=== PATIENT | male | born 1975 | race Caucasian/White ===

== ENCOUNTER 2020-08-22 10:50 | Emergency (ER) | payer SELFPAY ==
[~2020-08-22] VITALS: Ht 190.5 cm; Wt 138.6 kg
[~2020-08-22 10:50] MED LIST: KETO10TA PO; SULF1TAB24 PO
--- NOTE | 2020-08-22 11:08 | PHYS DOC ---
Past History Past Medical History: Kidney Stones Past Surgical History: Other Alcohol Use: Occasionally Drug Use: None Adult General Chief Complaint Chief Complaint: MULTIPLE COMPLAINTS [facility] HPI Patient is a 44-year-old male presenting for shortness of breath. Onset was approximately 2 hours ago prior to arrival without any known inciting event or trauma. Nothing known makes better, physical exertion makes worse. Patient reports " it is difficult to breathe" in the setting of URI-like symptoms. States he has had episodic chills and diaphoresis despite being adequately closed and in climate controlled environments. He has no known COVID-19 exposure but is concerned about potential infection today. He does admit dry nonproductive cough, rhinorrhea, postnasal drip, facial congestion, shortness of breath, dyspnea with exertion, nausea and several episodes of dry heaving without any actual emesis. Denies any known fever, syncope, chest pain, abdominal pain, no changes in bladder or bowel function. Patient admits history of tobacco and alcohol use and intermittently uses THC. No history of IV drug use but admits prior history of illicit drug use such as cocaine. Does not have a primary care physician, has no known medical diagnoses. Has significant family cardiac history. Of note, patient is refusing any nasal COVID-19 swab stating " I have a sensitive nose... The vessels in there bleed any time I get a swab so I do not want it" Review of Systems Review of Systems Fourteen body systems of review of systems have been reviewed. See HPI for pertinent positives and negative responses, other loredo all other systems are negative, non-pertinent or non-contributory Allergies Allergies Allergies Coded Allergies Type Severity Reaction Last Updated Verified venom-honey bee Allergy Unknown 08/22/20 No Physical Exam Physical Exam General: Appears anxious and diaphoretic Skin: Warm, dry. Normal for ethnicity. HEENT: Atraumatic. PERRLA. Rhinorrhea, postnasal drip and congestion. Nasal turbinates boggy b/l. Moist mucous membranes. Uvula midline. Maintaining secretions. No phonation changes. Neck: Trachea midline. Normal ROM. No stridor. Respiratory: Normal WOB. CTAB w/o w/r/r. No tachypnea. Cardiovascular: Regular rate and rhythm. Normal peripheral perfusion. Abdomen: Soft. Non tender. No distension. Back: Normal ROM. Musculoskeletal: No swelling or deformity. Neuro: Alert and oriented x 4. MAEE. Lymph: No cervical LAD. Psych: Anxious affect, normal mood Current Patient Data Vital Signs Vital Signs Date Time Temp Pulse Resp B/P (MAP) Pulse Ox O2 Delivery O2 Flow Rate FiO2 08/22/20 12:38 98 12 159/117 (131) 98 Room Air 08/22/20 11:00 98.2 Lab Results Laboratory Tests Test 08/22/20 11:23 White Blood Count 10.4 x10^3/uL (4.0-11.0) Red Blood Count 5.45 x10^6/uL (4.30-5.70) Hemoglobin 16.9 g/dL (13.0-17.5) Hematocrit 50.2 % (39.0-53.0) Mean Corpuscular Volume 92 fL (79-100) Mean Corpuscular Hemoglobin 31 pg (25-35) Mean Corpuscular Hemoglobin Concent 34 g/dL (31-37) Red Cell Distribution Width 13.2 % (11.5-14.5) Platelet Count 231 x10^3/uL (140-400) Neutrophils (%) (Auto) 72 % (31-73) Lymphocytes (%) (Auto) 21 % (24-48) Monocytes (%) (Auto) 6 % (0-9) Eosinophils (%) (Auto) 1 % (0-3) Basophils (%) (Auto) 1 % (0-3) Neutrophils # (Auto) 7.5 x10^3uL (1.8-7.7) Lymphocytes # (Auto) 2.1 x10^3/uL (1.0-4.8) Monocytes # (Auto) 0.6 x10^3/uL (0.0-1.1) Eosinophils # (Auto) 0.1 x10^3/uL (0.0-0.7) Basophils # (Auto) 0.1 x10^3/uL (0.0-0.2) Prothrombin Time 9.8 SEC (9.4-11.4) Prothromb Time International Ratio 0.9 (0.9-1.1) Activated Partial Thromboplast Time 29 SEC (23-33) Sodium Level 141 mmol/L (136-145) Potassium Level 4.5 mmol/L (3.5-5.1) Chloride Level 107 mmol/L (98-107) Carbon Dioxide Level 26 mmol/L (21-32) Anion Gap 8 (6-14) Blood Urea Nitrogen 11 mg/dL (8-26) Creatinine 1.2 mg/dL (0.7-1.3) Estimated GFR (Cockcroft-Gault) 65.2 BUN/Creatinine Ratio 9 (6-20) Glucose Level 101 mg/dL (70-99) Calcium Level 9.5 mg/dL (8.5-10.1) Total Bilirubin 0.4 mg/dL (0.2-1.0) Aspartate Amino Transf (AST/SGOT) 27 U/L (15-37) Alanine Aminotransferase (ALT/SGPT) 36 U/L (16-63) Alkaline Phosphatase 77 U/L (46-116) Troponin I Quantitative 0.228 ng/mL (0-0.055) Total Protein 7.8 g/dL (6.4-8.2) Albumin 3.8 g/dL (3.4-5.0) Albumin/Globulin Ratio 1.0 (1.0-1.7) EKG EKG EKG ordered and interpreted by myself at 1135 hrs. as sinus rhythm at 76 bpm, unremarkable intervals, left axis deviation, no acute ischemic findings, no STEMI Radiology/Procedures Radiology/Procedures XR CHEST 1V History: Reason: SHORTNESS OF BREATH, COUGH, PUI COVID / Spl. Instructions: / History: Comparison: None. Findings: No consolidation or pleural effusion. Normal heart size. No pneumothorax. Impression: 1. No acute cardiopulmonary process. Electronically signed by: Stoney Lang DO (08/22/2020 12:09 PM) [id number] Heart Score HEART Score for Chest Pain: HEART Score for Chest Pain Response (Comments) Value History Slighlty/Non-Suspicious 0 ECG Normal 0 Age >45 - < 65 1 Risk Factors >3 Risk Factors or Hx CAD 2 Troponin < Normal Limit 0 Total 3 Risk Factors: Risk Factors: DM, Current or recent (<one month) smoker, HTN, HLP, family history of CAD, obesity. Risk Scores: Risk Factors: DM, Current or recent (<one month) smoker, HTN, HLP, family history of CAD, obesity. Course & Med Decision Making Course & Med Decision Making Pertinent Labs and Imaging studies reviewed. (See chart for details) Discussed most likely diagnosis of NSTEMI, likely type 2 from suspect COVID-19 vs other respiratory illness. I discussed case with [facility]'s cardiology team and hospitalist, plan to initiate heparin drip and transfer for higher acuity of care and potential heart cath I updated patient and who tuned in via Facetime at length on proposed plan of care. Patient hesitant about transfer due to fear of getting COVID tested via nasal swab. Cites "sensitive veins" in his nose that will bleed I spent +30 minutes trying to stress severity of case and need for transfer and admission but patient did not want to do this. The risks of refusing recommended care that were disclosed and acknowledged by the patient include loss of current lifestyle, permanent mental impairment, and . The recommended medical care being refused was been discussed with the patient and was to stay for continued monitoring, workup, and possible treatment. Patient with full capacity still voicing that he would like to leave AMA Discharge Care: The patient understood they are welcome to return to the hospit al at any time to receive the recommended care or any other care at any time, regardless of their ability to pay for such care. Patient signed AMA paperwork but left prior to receiving ER paperwork detailing next steps in care for such a high-risk patient Given the high probability of imminent or life threatening deterioration of the patients condition without intervention, the patient was immediately assessed by myself and the nurse, and cardiac monitoring initiated. The patient was also placed on oxygen and continuous pulse oximetry initiated. During the course of the patients stay, I spent a considerable amount of time at the bedside performing serial re-evaluations of the patients hemodynamic and clinical status because of the recognized potential threat to life or limb in this condition. Clinical management of this patient involved high complexity decision making to assess, manipulate, and support vital organ system failure. I then had a chance to review all of the available laboratory and radiographic studies obtained today, and I also reviewed old records available to me at the time. Sequential vital signs were obtained. Critical care time noted below was time spent engaged in work directly related to the individual patients care, not including time performing procedures; however it does include time spent at the immediate bedside or elsewhere on the floor or unit. TOTAL CRITICAL CARE TIME ELAPSED: in excess of 30 minutes. BODY SYSTEM AT HIGHEST RISK: Cardiac. Dragon Disclaimer Dragon Disclaimer This electronic medical record was generated, in whole or in part, using a voice recognition dictation system. PERC Rule for PE PERC Rule for PE Response (Comments) Value Age > 50: No 0 HR > 100: No 0 Sa02 on room air <95%: No 0 Unilateral leg swelling: No 0 Hemoptysis: No 0 Recent surgery or trauma: No 0 Prior PE or DVT: No 0 Hormone use: No 0 Total 0 Departure Departure: Impression: Primary Impression: NSTEMI (non-ST elevated myocardial infarction) Additional Impression: Viral syndrome Disposition: 07 AMA/ELOPED/LWBS Condition: CRITICAL Referrals: ISAI FLORIAN MD (PCP) Problem Qualifiers MICHELLE RIVAS DO Aug 22, 2020 11:08
[2020-08-22] MEDS ORDERED: IV NORMAL SALINE 1,000ML 1,000 ML IV SCH (11:15)
[2020-08-22 11:39] LABS: BASO # 0.1 x10^3/uL (0.0-0.2); BASO % 1 % (0-3); EOS # 0.1 x10^3/uL (0.0-0.7); EOS % 1 % (0-3); HEMATOCRIT 50.2 % (39.0-53.0); HEMOGLOBIN 16.9 g/dL (13.0-17.5); LYMPH # 2.1 x10^3/uL (1.0-4.8); LYMPH % 21 % (24-48); MEAN CORPUSCULAR HEMOGLOBIN 31 pg (25-35); MEAN CORPUSCULAR HGB CONC 34 g/dL (31-37); MEAN CORPUSCULAR VOLUME 92 fL (79-100); MONO # 0.6 x10^3/uL (0.0-1.1); MONO % 6 % (0-9); NEUT # 7.5 x10^3uL (1.8-7.7); NEUT % 72 % (31-73); PLATELET COUNT 231 x10^3/uL (140-400); RED BLOOD COUNT 5.45 x10^6/uL (4.30-5.70); RED CELL DISTRIBUTION WIDTH 13.2 % (11.5-14.5); WHITE BLOOD COUNT 10.4 x10^3/uL (4.0-11.0)
[2020-08-22 11:51] LABS: CALCIUM 9.5 mg/dL (8.5-10.1); CREATININE 1.2 mg/dL (0.7-1.3); GFR 65.2; POTASSIUM 4.5 mmol/L (3.5-5.1)
[2020-08-22 11:56] LABS: ALBUMIN 3.8 g/dL (3.4-5.0); TOTAL BILIRUBIN 0.4 mg/dL (0.2-1.0); TOTAL PROTEIN 7.8 g/dL (6.4-8.2)
--- NOTE | 2020-08-22 12:11 | RAD ---
XR CHEST 1V History: Reason: SHORTNESS OF BREATH, COUGH, PUI COVID / Spl. Instructions: / History: Comparison: None. Findings: No consolidation or pleural effusion. Normal heart size. No pneumothorax. Impression: 1. No acute cardiopulmonary process. Electronically signed by: Stoney Lang DO (08/22/2020 12:09 PM) [id number]
[2020-08-22 12:38] VITALS: BP 159/117
[2020-08-22] MEDS ORDERED: ASPIRIN CHEWABLE 81 MG TABLET. PO ONE (12:45)
--- NOTE | 2020-08-22 12:59 | EKG ---
[address] [address] Test Date: 2020-08-22 Test Time: 11:28:04 Pat Name: RUBY MONROE Department: Room: Gender: M [employer] Table As[employer]er: : 1975 Requested By: MICHELLE RIVAS Order Number: [id number] Reading MD: Measurements Intervals [place] Rate: 76 P: -30 ND: 128 QRS: -30 QRSD: 84 T: 47 QT: 356 QTc: 405 Interpretive Statements SINUS RHYTHM ABNORMAL LEFT AXIS DEVIATION LEFT ANTERIOR FASCICULAR BLOCK QRS(T) CONTOUR ABNORMALITY CONSIDER ANTEROSEPTAL MYOCARDIAL DAMAGE ABNORMAL ECG RI6.02 No previous ECG available for comparison
[2020-08-22] MEDS ORDERED: HEPARIN 25,000UTS/250ML PREMIX 250 ML IV PRN (13:15)
[2020-08-22] MEDS ORDERED: HEPARIN for IV BOLUS 10,000 UNIT/10 ML VIAL. IV ONE (13:15)
== END 2020-08-22 14:40 | disposition left against medical advice (07) ==
LOC: ER 10:50
DX: I21.4 Non-ST elevation (NSTEMI) myocardial infarction (principal); B34.9 Viral infection, unspecified; Z87.442 Personal history of urinary calculi; Z91.030 Bee allergy status
CPT/HCPCS: 36415; 71045; 80053; 84484; 85025; 85610; 85730; 93005; 96361; 96365; 96376; 99291; J1644; J7030